=== PATIENT | female | born 1980 | race Caucasian/White ===

== ENCOUNTER 2022-02-04 10:41 | Emergency (ER) | payer BC, SELFPAY ==
[2022-02-04 10:49] VITALS: BP 141/92; PULSE 87; RESP 14; TEMP 36.8; O2SAT 100
[2022-02-04 10:58] VITALS: BP 141/92; PULSE 87; RESP 14; TEMP 36.8; O2SAT 100
--- NOTE | 2022-02-04 11:01 | ED.FEMALEGU ---
HPI - Female Genitourinary General Chief complaint: Urogenital-Female Stated complaint: Urinary Problem Time Seen by Provider: 02/04/22 11:00 Source: patient and RN notes reviewed Mode of arrival: ambulatory Limitations: no limitations History of Present Illness HPI Narrative: 41-year-old female presented for complaints of urinary frequency, urgency, and burning with urination since yesterday morning. Noticed small amount of blood this morning. She will void small amounts at a time. She endorses a history of UTIs and states it feels similar. Denies associated nausea, vomiting, abdominal pain, neck pain, fevers or chills. Denies vaginal discharge or concern for STD. She took cranberry pills for symptoms. Related Data Home Medications Medication Instructions Recorded Confirmed losartan 25 mg tablet 25 mg PO DAILY 02/04/22 02/04/22 Allergies Allergy/AdvReac Type Severity Reaction Status Date / Time No Known Drug Allergies Allergy Unknown Verified 02/04/22 10:56 Review of Systems Review of Systems: CONSTITUTIONAL: Denies body aches, fever, chills, or sweats. CARDIOVASCULAR: Denies chest pain, palpitations, or edema. RESPIRATORY: Denies cough or dyspnea. GASTROINTESTINAL: Denies abdominal pain, nausea, vomiting, or diarrhea , flank pain GENITOURINARY: Reports dysuria, frequency, urgency, hematuria SKIN: Denies rash, itching, or wounds. MUSCULOSKELETAL: Denies back pain or myalgia. PMFSH Comments At time of signature, I have reviewed and agree with nursing past medical, surgical, social and family history unless otherwise noted. Please see nursing chart for further information. There is no relevant family history pertinent to the presenting complaint Exam Narrative: GENERAL: Well-appearing and in no acute distress. CHEST: No respiratory distress. Clear to auscultation. HEART: Regular rate and rhythm. ABDOMEN: Soft, nontender, nondistended, normal active bowel sounds. No CVA tenderness MUSCULOSKELETAL: No bony tenderness. SKIN: Warm, dry, no rash. NEURO: No focal deficits. Alert and oriented x3. Gait steady. PSYCH: Normal affect. No signs of depression or anxiety. Course Course Emergency Course: Patient is aware of diagnosis, understands and agrees to treatment plan. Anticipatory guidance given. Patient agrees to follow-up as directed and is aware of reasons to seek care at the emergency department. Portions of this record may have been created with voice recognition software Level of Care: Express Care Visit Vital Signs Vital signs: Vital Signs Temperature 98.2 F 02/04/22 10:49 Pulse Rate 87 02/04/22 10:49 Respiratory Rate 14 02/04/22 10:49 Blood Pressure 141/92 H 02/04/22 10:49 Pulse Oximetry 100 02/04/22 10:49 Oxygen Delivery Room Air 02/04/22 10:49 Temperature 98.2 F 02/04/22 10:58 Pulse Rate 87 02/04/22 10:58 Respiratory Rate 14 02/04/22 10:58 Blood Pressure 141/92 H 02/04/22 10:58 Pulse Oximetry 100 02/04/22 10:58 Oxygen Delivery Room Air 02/04/22 10:58 Reviewed MDM - Female Genitourinary MDM Narrative Medical decision making narrative: Exam findings and UA indicate uti, abx sent, declines pyridium; patient is non-toxic appearing and is in no distress. Appropriate for treatment of UTI as outpt. Differential Diagnosis Differential diagnosis: Likely urinary tract infection and cystitis Discharge Plan Discharge Clinical Impression: Urinary tract infection Qualifiers: Urinary tract infection type: site unspecified Hematuria presence: with hematuria Qualified Code(s): N39.0 - Urinary tract infection, site not specified Patient Disposition: Home, Self-Care Condition: Stable Instructions: Antibiotic Form, Urinary Tract Infection in Women (ED) Additional Instructions: Your urine shows infection today. Take the antibiotic as prescribed The urine will be sent of for a culture to identify what type of bacteria is causing your infecti
== END 2022-02-04 11:08 | disposition home or self-care (01) ==
PROVIDERS: Emergency Provider Nurse Practitioner Family; PCP Internal Medicine
DX: N39.0 Urinary tract infection, site not specified (principal); I10 Essential (primary) hypertension
CPT/HCPCS: 81003; 87086; 99203; G0463